=== PATIENT | female | born 1935 | race Caucasian/White ===

== ENCOUNTER 2016-08-09 12:11 | Emergency (ER) | payer MEDICARE, OTHER ==
--- NOTE | 2016-08-09 12:35 | EDPRACDOC ---
- Treatment Prior to ED Arrival Reported NONE - General Information Stated Complaint: STROKE SYMPTOMS CONFUSION Time Seen by Provider: 08/09/16 12:14 Mode of Arrival:: Wheelchair (BR[facility]HT FROM [facility]) Home Medications: Home Medications Aspirin [Aspirin EC] 81 mg PO Q48H 08/09/16 Aspirin [Ecotrin] 81 mg PO DAILY #30 tablet. 08/09/16 Cyanocobalamin (Vitamin B-12) [B-12] 1,000 mcg PO DAILY 08/09/16 Multivitamin [One Daily Essential] 1 each PO DAILY 08/09/16 Simvastatin [Zocor] 20 mg PO Q48H 08/09/16 Allergies/Adverse Reactions: Allergies Allergy/AdvReac Type Severity Reaction Status Date / Time codeine Allergy Nausea/Vomi Verified 08/09/16 12:55 ting - History of Present Illness Exact Onset of Symptoms: Known Date Symptoms Started: 08/09/16 Time Symptoms Started: 12:00 Symptoms Started: Reports: Suddenly Symptoms: Reports: Other (CONFUSION, WITNESSES DESCRIBED ABSENCE SEIZURE.). Denies: Other motor weakness, Near syncope, Numbness Symptoms Description: Improved Associated signs and symptoms:: Reports: None - Other History Other History: HOSPITAL STAFF AND PATIENT REPORT THAT THIS HAS OCCURRED MULTIPLE TIMES IN THE PAST. EVALUATED BY PCP DR BRUSH. LAST EPISODE NEARLY A YEAR AGO. ED Past Medical History - History Reviewed Yes Nurses notes reviewed and agree except as marked EDM Review of Systems - Review of Systems ROS Negative Except as Marked: Yes All systems reviewed and were negative except as marked ROS Unobtainable: Yes Review of systems cannot be obtained due to the patient's medical condition - Physical Exam Constitutional: No apparent distress, Alert (Awake), Confused Oriented to: Time, Person, Place Last recorded Vital Signs: Oxygen Pulse Oxygen Saturation O2 Device Oxygen Flow Rate Fraction of Inspired Oxygen ( FIO2) - HEENT Head: Normal ( normocephalic) Eye Exam: Normal (PERRL, EOMI, Sclera white) Oropharynx: Normal (Pharynx:Moist without exudate,Gums-no swelling) Nose: No Symptoms Reported (septum midline) Neck: Normal (FROM, trachea at midline) - Respiratory/Cardiovascular Respiratory: Normal - CTA (BBS clear to auscultation without adventitious sounds ) Cardiovascular: Normal (RRR without murmur, gallop or rub) - GI Auscultation: Normal (NABS) Palpation: Normal (Soft,No rebound or guarding, non distended) Tenderness: Non tender Rollins's Sign: Negative - Musculoskeletal Back: Normal (Non-Tender) Extremities: Normal (Normal tone, Pulses 2+ No cyanosis or edema, FROM) - Integumentary Skin: Normal, Warm, Dry Lymphatics: Normal (no adenopathy) - Neurologic Memory Impaired: Normal Motor Function: Normal (Normal tone, Pulses 2+ No cyanosis or edema, FROM) Cranial Nerve: Normal (CN II-X11 intact sensation, strength 5/5) Cerebellar: Normal Mood Description: Normal Perception: Normal NIH Stroke Scale Re-evaluation 1 Level of Consciousness: Alert LOC- Question: Answers Both Correctly LOC Commands: Both Task Correctly Best Gaze: Normal Visual: No Visual Loss Facial Palsy: Normal Movement Motor Arm LEFT: No Drift Motor Arm RIGHT: No Drift Motor Leg LEFT: No Drift Motor Leg RIGHT: No Drift Limb Ataxia: Absent Sensory: Normal Best Language: No Aphasia Dysarthria: Normal Extinction and Inattention: No Abnormality (Neglect) Score: 0out of42 - Action Is patient a candidate for lytic therapy?: No - Re-evaluation Re-evaluation 1 Re-evaluation Time: 12:38 (IMPROVING) Re-evaluation 3 Re-evaluation Time: 13:42 BACK TO NORMAL. - Results 08/09/16 12:40 08/09/16 12:40 - EKG EKG #1 EKG Time: 12:43 -: Yes EKG interpreted by me Rate: bpm: 82 Combs: Normal Rhythm: NSR Block: None Hypertrophy: None ST: Normal - Diagnostic Imaging Chest Image interpreted by: Radiologist Patient Name: ERVIN GRACE LOC: ED : 1935 AGE: 81 Order Date:08/09/16 Date of Service: Report # [id number] Ord Physician: Maurice Pillai MD Exam # [id number] Emergency Physician: Maurice Pillai MD Exam(s): [id number] RAD/DG CHEST PORTABLE CLINICAL DATA: Stroke-like symptoms and confusion today. EXAM: PORTABLE CHEST 1 VIEW COMPARISON: None. FINDINGS: The heart is within normal limits in size for age. There is tortuosity and calcification of the thoracic aorta. Mild bronchitic changes, acute versus chronic. No definite infiltrates or effusions. No pulmonary edema. The bony thorax is intact. IMPRESSION: Bronchitic type lung changes, acute versus chronic. No focal infiltrates or effusions. Electronically Signed By: Rc Villavicencio M.D. On: 08/09/2016 12:58 Electronically Signed By: Harrison Villavicencio MD Electronically Signed Date/Time: [id number] Dictate Date/Time: 08/09/16 1257 Technologist: Riddhi Vu Transcribed By: Oli Transcribed Date/Time: 08/09/16 1258 Head Image interpreted by: Radiologist Patient Name: GEORGE GRACE Courtesy Copy to: Diagnostic Imaging Report [facility] [address] [facility] [id number] [phone] Diagnostic Imaging Services Courtesy Copy to: Diagnostic Imaging Report Patient Name: GEORGE GRACE LOC: ED : 1935 AGE: 81 Order Date:08/09/16 Date of Service: Report # [id number] Ord Physician: Maurice Pillai MD Exam # [id number] Emergency Physician: Maurice Pillai MD Exam(s): [id number] CT/CT HEAD W/O (CODESTROKE) CLINICAL DATA: Mental status changes this morning. EXAM: CT HEAD WITHOUT CONTRAST TECHNIQUE: Contiguous axial images were obtained from the base of the skull through the vertex without intravenous contrast. COMPARISON: None. FINDINGS: The ventricles are normal in size and configuration. No extra-axial fluid collections are identified. The up-white differentiation is normal. No CT findings for acute intracranial process such as hemorrhage or infarction. No mass lesions. The brainstem and cerebellum are grossly normal. The bony structures are intact. Scattered ethmoid sinus disease. The mastoid air cells and middle ear cavities are clear. The globes are intact. IMPRESSION: Normal head CT for age. These results were called by telephone at the time of interpretation on 08/09/2016 at 12:[address] MAURICE PILLAI MD, who verbally acknowledged these results. Electronically Signed By: Rc Villavicencio M.D. On: 08/09/2016 12:30 Electronically Signed By: Harrison Villavicencio MD Electronically Signed Date/Time: 233 Dictate Date/Time: 08/09/16 1227 Technologist: Ricci Coburn Transcribed By: Oli Transcribed Date/Time: 08/09/16 1230 - Additional Information D/W PCP: EVAL FOR TIA AND SZ IN THE PAST HAVE BEEN NORMAL. PT DID HAVE ABN GTT, SO SYMPTOMS THOUGHT TO BE RELATED TO RELATIVE HYPOGLYCEMIA, AND PT HAS BEEN INSTRUCTED TO EAT FREQUENT SMALL MEALS. THIS HAS BEEN SUCCESSFUL FOR NEARLY A YEAR. - Departure Disposition: Home Condition: Stable Final Diagnosis: Altered mental status Qualifiers: Altered mental status type: stupor Qualified Code(s): R40.1 - Stupor Education/Counseling Given To: Patient, Family Member Education/Counseling Given Regarding: Diagnosis, Treatment, Prognosis Prescriptions: Aspirin [Ecotrin] 81 mg PO DAILY #30 tablet.dr Additional Instructions: EAT FREQUENT SMALL MEALS
[2016-08-09 12:49] LABS: AUTOMATED BASOPHIL 0.7 % (0-2); AUTOMATED EOSINOPHIL 4.2 % (0-5); AUTOMATED LYMPH 29.8 % (17-44); AUTOMATED MONOCYTE 7.4 % (3-10); AUTOMATED NEUTROPHIL 57.9 % (45-76); MPV 9.4 fL (7.4-10.4)
[2016-08-09 12:59] VITALS: BMI 23.5
[2016-08-09 13:01] LABS: BLOOD UREA NITROGEN 21 MG/DL (7-17); CALCIUM 9.5 MG/DL (8.4-10.2); CALCULATED OSMOLALITY 268 MOs/Kg (270-290); CHLORIDE 102 mEq/L (98-107); GLUCOSE 88 MG/DL (70-99); SODIUM LEVEL 138 mEq/L (137-146); TOTAL PROTEIN 7.4 G/DL (6.3-8.2)
--- NOTE | 2016-08-09 13:01 | DIRPT ---
CLINICAL DATA: Stroke-like symptoms and confusion today. EXAM: PORTABLE CHEST 1 VIEW COMPARISON: None. FINDINGS: The heart is within normal limits in size for age. There is tortuosity and calcification of the thoracic aorta. Mild bronchitic changes, acute versus chronic. No definite infiltrates or effusions. No pulmonary edema. The bony thorax is intact. IMPRESSION: Bronchitic type lung changes, acute versus chronic. No focal infiltrates or effusions. Electronically Signed By: Rc Villavicencio M.D. On: 08/09/2016 12:58
[2016-08-09 13:25] LABS: CPK TOTAL WITH POSSIBLE MB 88 IU/L (30-134)
[2016-08-09] MEDS ORDERED: ASPIRIN (CHEWABLE) 81 MG TAB PO ONE (13:36)
[2016-08-09 14:00] VITALS: BP 166/72; PULSE 80
== END 2016-08-09 14:05 | disposition home or self-care (01) ==
LOC: MERGE 12:11 → ED 12:11
DX: R40.1 Stupor (principal)
CPT/HCPCS: 36415; 70450; 71010; 80053; 82550; 84484; 85025; 93005; 99284; A9270; J3490